=== PATIENT | female | born 1950 | race Caucasian/White ===

== ENCOUNTER 2023-09-22 12:34 | Emergency (ER) | payer MEDICARE, OTHER, SELFPAY ==
[2023-09-22 12:45] VITALS: BP 178/94
--- NOTE | 2023-09-22 13:21 | ED.GENMED ---
History of Present Illness
General
Chief Complaint: Musculo-Skeletal Complaint
Time Seen by Provider: 09/22/23 13:10
Travel History
Have you had any contact with someone who has COVID-19?: No
Do you have any symptoms of coronavirus? Fever > 100 degrees, chills, cough, shortness of breath, sore throat, loss of taste or smell, muscle aches, or headache?: No
History of Present Illness
History of Present Illness:
73-year-old female presents to the emergency department for evaluation of persistent left ankle pain for the past several months. Acutely worsened yesterday after an inversion injury to the left ankle. She is able to bear weight with pain.
Past History
Past History
ED Past Medical History: GERD and Other (Migraine headaches, L knee torn Meniscus, Adhesions)
ED Past Surgical History: Cholecystectomy
Social History
Tobacco: Non-smoker
Alcohol: None
Drug: None
Personal: Single
Living: with family
Employment: Employed
Family History
Family History: Other (Noncontributory)
Review of Systems
Review of Systems
Allergies reviewed?: Yes
All Other Systems: ROS reviewed and negative except as documented in HPI and ROS
Phy Exam
Physical Exam
Physical Exam:
GEN: Well appearing, NAD, WDWN
HEENT: Oral mucosa moist, no scleral icterus
Cardiac: Regular rate
Lung: No respiratory distress, no tachypnea
MSK: No gross deformity or injuries. Mild ankle joint effusion, grossly nontender to bony prominences. No laxity
Skin: Good color, no pallor or jaundice, no rashes
Neuro: AO x3, moves all extremities freely
Psych: Calm, cooperative
Course
Orders/Labs/Results
Orders:
Orders
09/22/23 12:49
CR Ankle - Left Min 3 Views Urgent
Comment:
Reason For Exam: pain
Vital Signs
Initial and Last Documented VS:
Initial Vital Signs
Temp Pulse Resp BP Pulse Ox
98.1 F 84 16 178/94 97
09/22/23 12:45 09/22/23 12:45 09/22/23 12:45 09/22/23 12:45 09/22/23 12:45
Last Documented Vital Signs
Temp Pulse Resp BP Pulse Ox
98.1 F 84 16 178/94 97
09/22/23 12:45 09/22/23 12:45 09/22/23 12:45 09/22/23 12:45 09/22/23 12:45
MDM/Problems Addressed
MDM/Problems Addressed:
X-rays of the ankle independently interpreted by me are negative for acute osseous abnormality. Some component of arthritic change given the waxing and waning pain and swelling. Recommend outpatient orthopedic follow-up. Unfortunately she is
allergic to NSAIDs thus can only recommend external compression and ice for pain control
*Critical Care Note
Total Time (30-74mins, 75-104mins- exclusive of procedures): Not Applicable
ED Attending Note
-
Portions of this chart may have been created with voice recognition software.� Occasional wrong word or��sound alike� substitutions may have occurred due to the inherent limitations of voice recognition software.
Discharge Plan
Departure
Patient Disposition: Home (Routine Discharge)
Date of Disposition: 09/22/23
Time of Disposition: 13:22
Patient with high blood pressure during this ER visit?: No
Discharge Problem:
Acute left ankle pain
Instructions: Swollen Joints (DC)
Prescriptions:
No Action
ondansetron [Zofran ODT] 8 MG tablet,disintegrating
8 mg PO Q8HPRN PRN (Reason: vomiting) Qty: 15 0RF
azithromycin 250 MG tablet
250 mg PO DAILY Qty: 6 0RF
ciprofloxacin HCl 1 DROP drops
1 drp otic (ear) QID Qty: 1 0RF
Referrals:
Dante Locke MD [Active] -
Ej Wood MD [Family Provider] -
Activity Restrictions/Additional Instructions:
Keep ankle elevated and use an YARI wrap to decrease swelling
Ice often especially after long periods of being upright
Follow up with Orthopedics
Interventions
Interventions:
*General Assessment Last Done: 09/22/23 12:45
*ED COVID-19 Vaccine History Last Done: 09/22/23 12:45
[2023-09-22 13:40] VITALS: BP 134/78
== END 2023-09-22 14:03 | disposition home or self-care (01) ==
LOC: EMR 12:34
PROVIDERS: EMERGENCY PHYSICIAN Emergency Medicine; FAMILY PHYSICIAN Internal Medicine
DX: M25.572 Pain in left ankle and joints of left foot (principal); Z88.6 Allergy status to analgesic agent
CPT/HCPCS: 99283; 73610